=== PATIENT | male | born 1970 | race Caucasian/White ===

== ENCOUNTER 2020-06-10 09:42 | Day surgery (SDC) | payer SELFPAY ==
[2020-06-10] VITALS (11 sets, daily range): BP systolic 124–142; BP diastolic 71–95; PULSE 75–83; TEMP 97.7
[~2020-06-10] VITALS: Ht 182.9 cm; Wt 147.2 kg
[~2020-06-10 09:42] MED LIST: ALBUTEROL0.09 MG/A1 IH; ATOXIMETIN-B1 CAP PO; CEPHALEXIN500 M1 PO; CHANTIX1 MG PO; CLARITIN D TAB1 TAB PO; DILAUDID 2MG TAB2 MG PO; GLUCOPHAGE XR500 M1 PO; GLUCOPHAGE1000 MG PO; LOPID 600M600 MG/TAB PO; MOTRIN 800800 MG/TAB PO; MOTRIN800 MG PO; NASACORT AQ N16.5 GM NS; NO HOME MEDICATIONS; SEPTRA DS 8001 TAB PO; SINGULAIR10 MG PO; VICTOZA SQ
[2020-06-10] MEDS ORDERED: PROAIR HFA0.09 MG/AC IH (10:06)
[2020-06-10] MEDS ORDERED: IBU400 MG PO (10:06)
[2020-06-10] MEDS ORDERED: GLUCOTROL XL5 MG/TAB PO (10:07)
[2020-06-10] MEDS ORDERED: LANTUS100 U/ML SQ (10:08)
[2020-06-10] MEDS ORDERED: COREG 3.123.125 MG/T PO ×2 (10:08→12:52)
[2020-06-10] MEDS ORDERED: TRULICITY1.5 MG/0.5 SQ (10:09)
[2020-06-10] MEDS ORDERED: ZESTRIL 10MG10 MG PO (10:09)
[2020-06-10] MEDS ORDERED: PROTONIX 40MG T40 MG PO (10:10)
[2020-06-10] MEDS ORDERED: CRESTOR 10MG10 MG PO ×4 (10:11→14:19)
[2020-06-10] MEDS ORDERED: GLUCOPHAGE1000 MG PO (10:11)
[2020-06-10] MEDS ORDERED: LOPID 600M600 MG/TAB PO (10:12)
[2020-06-10 10:29] LABS: HEMATOCRIT 42.6 % (42.0-52.0); HEMOGLOBIN 14.6 g/dl (13.5-18.0); MEAN CELL VOLUME 81 fl (80.0-100.0); MEAN CORPUSCULAR HEMOGLOBIN 28 pg (27.0-31.0); MEAN CORPUSCULAR HGB CONC 34 g/dl (33.0-37.0); MEAN PLATELET VOLUME 9.8 fl (7.4-10.4); PLATELET COUNT 281 K/mm3 (130-400); RED BLOOD COUNT 5.28 M/mm3 (4.20-5.60); REDCELL DISTRIBUTION WIDTH-CV 12.7 % (11.5-14.5)
[2020-06-10 10:35] LABS: PROTHROMBIN TIME 10.7 SECONDS (9.7-12.8)
[2020-06-10 10:40] LABS: CALCIUM 9.3 mg/dL (8.4-10.2); CREATININE, serum 0.71 (0.66-1.25); POTASSIUM 4.6 mmol/L (3.4-5.0)
--- NOTE | 2020-06-10 11:52 | NUR ---
Pt to procedure.
--- NOTE | 2020-06-10 11:55 | NUR ---
SEE [facility] FOR ALL MEDICATION ADMINISTRATION TIMES AND INTRA\POST SEDATION ASSESSMENTS
[2020-06-10] MEDS ORDERED: IMDUR 60MG60 MG/TAB PO (14:19)
--- NOTE | 2020-06-10 18:08 | NUR ---
Discharge instructions given to pt.Pt verbalizes understanding.INT removed,catheter tip intact.Pt escorted out via wheelchair by this nurse.
== END 2020-06-10 18:10 | disposition home or self-care (01) ==
LOC: COL.CAR
PROVIDERS: Internal Medicine Cardiovascular Disease
DX: I25.110 Atherosclerotic heart disease of native coronary artery with unstable angina pectoris (principal); Z20.828 Contact with and (suspected) exposure to other viral communicable diseases; Z87.891 Personal history of nicotine dependence; Z79.51 Long term (current) use of inhaled steroids; Z79.84 Long term (current) use of oral hypoglycemic drugs; Z88.8 Allergy status to other drugs, medicaments and biological substances; E66.9 Obesity, unspecified; Z68.41 Body mass index [BMI] 40.0-44.9, adult; E11.65 Type 2 diabetes mellitus with hyperglycemia; E78.5 Hyperlipidemia, unspecified; Z79.82 Long term (current) use of aspirin
CPT/HCPCS: C1725; C1769; C1887; C1894; J1644; J2250; J3010